=== PATIENT | male | born 1985 | race Caucasian/White ===

== ENCOUNTER 2019-09-19 23:08 | Emergency (ER) | payer MEDICAID ==
[~2019-09-19] VITALS: Ht 165.1 cm; Wt 68.0 kg
[2019-09-19 23:20] VITALS: BP 142/84
[2019-09-19] MEDS ORDERED: CLINDAMYCIN HC150 MG ORAL ×2 (23:42→23:58)
[2019-09-19 23:45] VITALS: BP 138/80
--- NOTE | 2019-09-19 23:47 | Emergency Room Report ---
History of Present Illness General Chief Complaint: Upper Extremity Injury Source: Patient Present Illness HPI Disclaimer: Please note that this report is being documented using [employer] technology. This can lead to erroneous entry secondary to incorrect interpretation by the dictating instrument. HPI: 34-year-old male presents for evaluation of a skin infection on his left forearm. Patient was using IV drugs last week. He stated he missed the vein accidentally injected into the subcutaneous tissue. Noted pain and swelling. Gotten worse over the past few days. He was seen in urgent care 2 days ago prescribed Bactrim which she has been taking but no improvement in symptoms. Notes a lump is growing in the left antecubital fossa. Notes some hypersensitivity to the forearm and spreading redness. Denies fever, chills, numbness, tingling, limitation in range of motion. Lump is painful to palpation. Denies fluctuance and reports it is firm. Denies skin breakdown. Has had abscesses drained in the past. PMH: Denies PSH: Cosmetic surgery for gynecomastia Allergies: Anaphylactic to penicillin Social Hx: IV drug abuse Allergies: Uncoded Allergies: PENICILIN (Allergy, Unknown, 09/19/19) COVID-19 Screening Contact w/high risk pt: No Recent Travel to affected area: No Experienced COVID-19 symptoms?: No Nursing Documentation-PMH Past Medical History: No History, Except For Review of Systems All Other Systems: negative except mentioned in HPI Physical Exam Vital Signs Date Time Temp Pulse Resp B/P (MAP) Pulse Ox O2 Delivery O2 Flow Rate FiO2 09/19/19 23:16 98.4 111 22 142/84 (103) 97 Room Air General: Awake and alert, no acute distress HEENT: NC/AT. EOMI. Resp: Normal work of breathing Skin: There is a 4 x 5 cm area just distal left antecubital fossa of erythema and induration. No fluctuance. No overlying ulcerations, skin breakdown. Nikolsky negative. Mildly tender to palpation and warm to the touch. Mild surrounding erythema. MSK: Normal tone and bulk. Moving all extremities. No obvious deformity. Full range of motion in the digits, wrist, elbow and shoulder in the left upper extremity. Neuro: Awake and alert. Mentating appropriately. Sensation intact over the dermatomes of the left upper extremity. Able to flex and extend all digits. Medical Decision Making Diagnostic Impression: Primary Impression: Cellulitis ER Course 34-year-old male history of IV drug abuse presents for evaluation of left arm pain and swelling. Concern for abscess versus cellulitis at this time. A bedside ultrasound showed significant cobblestoning soft tissue edema consistent with cellulitis but no obvious drainable fluid collection. Patient is on Bactrim we will add clindamycin for dual coverage given MRSA given his high risk behavior. He has anaphylactic penicillin. Area of erythema was demarcated with skin marking pen. He was instructed to return to the emergency department immediately if symptoms worsen or if his infection spread outside that area. His tetanus is up-to-date. No other complaints at this time. Is otherwise well-appearing nonseptic. Discussed return precautions and need to follow-up on an outpatient basis. He understands and agrees with treatment plan. Last Vital Signs Date Time Temp Pulse Resp B/P (MAP) Pulse Ox O2 Delivery O2 Flow Rate FiO2 09/19/19 23:16 98.4 111 22 142/84 (103) 97 Room Air Disposition: HOME, SELF-CARE Condition: Stable Scripts Clindamycin Hcl* (CLINDAMYCIN HCL*) 150 Mg Capsule 450 MG ORAL TID for 10 Days, #90 CAP Prov: Sanket Ochoa MD 09/19/19 Referrals: [facility] Patient Instructions: Cellulitis Additional Instructions: 50 antibiotics as prescribed. If you do not see any improvement or if you see worsening symptoms in the area of infection in the next 24 to 48 hours return to the hospital for reevaluation. Please follow-up with your primary care doctor in the next 1 to 3 days to discuss this emergency department visit and for reevaluation. If you have any new or worsening symptoms please return to the emergency department for reevaluation. Please note that this report is being documented using [employer] technology. This can lead to erroneous entry secondary to incorrect interpretation by the dictating instrument. Sanket Ochoa MD September 19, 2019 23:47
== END 2019-09-19 23:45 | disposition home or self-care (01) ==
LOC: EMR 23:45
DX: L03.114 Cellulitis of left upper limb (principal); Z88.0 Allergy status to penicillin
CPT/HCPCS: 99282